=== PATIENT | female | born 1995 | race Caucasian/White ===

== ENCOUNTER 2016-06-16 18:07 | Emergency (ER) | payer MEDICAID, OTHER ==
[~2016-06-16] VITALS: Ht 154.9 cm; Wt 77.1 kg
[2016-06-16 18:37] VITALS: BP 133/62
== END 2016-06-16 23:15 | disposition left against medical advice (07) ==
LOC: ER 18:15
DX: R10.2 Pelvic and perineal pain (principal); Z53.21 Procedure and treatment not carried out due to patient leaving prior to being seen by health care provider